=== PATIENT | female | born 1955 | race Caucasian/White ===

== ENCOUNTER 2022-10-20 11:48 | Outpatient (CLI) | payer MEDICARE, OTHER | END 2022-10-20 11:49 | disposition home or self-care (01) | LOC: CSHMAMMO 11:48 | PROVIDERS: ATTEND Family Medicine | DX: Z12.31 Encounter for screening mammogram for malignant neoplasm of breast (principal) | CPT/HCPCS: 77063; 77067 ==

== ENCOUNTER 2023-10-22 11:55 | Outpatient (CLI) | payer OTHER | END 2023-10-22 11:56 | disposition home or self-care (01) | LOC: CSHMAMMO 11:55 | PROVIDERS: ATTEND Family Medicine | DX: Z12.31 Encounter for screening mammogram for malignant neoplasm of breast (principal) | CPT/HCPCS: 77063; 77067 ==